=== PATIENT | male | born 1975 ===

== ENCOUNTER → 2020-01-25 | Day surgery (SDC) | payer BC ==
[~2020-01-25] VITALS: Ht 172.7 cm; Wt 77.1 kg
[~2020-01-25] MED LIST: ASCO100076 PO; ATOR20TA50 PO; BUPIVACAINE 0.25% INJ 50ML VIAL ONE; HYDROmorphone HCL 2 MG/ML VL IV PRN; KETOROLAC TROMETH 30 MG/ML 1ML VIAL IV ONE; LABETALOL HCL 5 MG/ML 4ML SYRINGE IV PRN; LIDOCAINE 1% HCL (LOCAL ANESTH.) INJ 20ML MDV ONE; MAGN400T40 PO; MIDAZOLAM HCL 1MG/1ML-2 ML VIAL IV PRN; MORPHINE SULFATE 4 MG/ML SYR/VIAL IV PRN; MULT-1018 PO; NIAC500T71 PO; OLME5TAB3 PO; ONDANSETRON HCL 4 MG/2 ML VIAL IV PRN; PROMETHAZINE HCL 25 MG/ML 1ML IV ONE; PROMETHAZINE HCL 25 MG/ML 1ML ONE; SUCCINYLCHOLINE CHLORIDE 20 MG/ML 10ML VIAL IV ONE; [UNRECOGNIZED DRUG - CODE] PO; [UNRECOGNIZED DRUG - CODE] PO; ceFAZolin 1GM/50ML 50 ML IV ONE; ePHEDrine SULFATE 50 MG/ML AMP IV PRN
[2020-01-25 13:19] VITALS: BP 112/64
== END | disposition home or self-care (01) ==
LOC: SUR 07:19
PROVIDERS: ATTEND Surgery
DX: K40.20 Bilateral inguinal hernia, without obstruction or gangrene, not specified as recurrent (principal); I10 Essential (primary) hypertension; E78.5 Hyperlipidemia, unspecified; Z85.22 Personal history of malignant neoplasm of nasal cavities, middle ear, and accessory sinuses; Z79.899 Other long term (current) drug therapy; Z98.890 Other specified postprocedural states; Z20.828 Contact with and (suspected) exposure to other viral communicable diseases
CPT/HCPCS: 49650; C1713; C1781; J0330; J0690; J2001; J2405; J2550; J3490; J7030; U0003